=== PATIENT | male | born 1985 | race Hispanic/Latino ===

== ENCOUNTER 2018-10-29 13:02 | Emergency (ER) | payer SELFPAY ==
[~2018-10-29] VITALS: Ht 170.2 cm; Wt 77.1 kg
--- NOTE | 2018-10-29 13:50 | Diagnostic Imaging Report ---
EXAMINATION: FINGER RT - HOPD INDICATION: Trauma COMPARISON: None FINDINGS: No acute fracture or dislocation. Alignment is anatomic. Soft tissues appear unremarkable. IMPRESSION: No acute osseous injury. Signed by: Benedict Rubio MD on 10/29/2018 1:47 PM
[2018-10-29] MEDS ORDERED: TETANUS/DIPHTHERIA TOX ADULT 0.5 ML SYR IM ONE (14:15)
[2018-10-29] MEDS ORDERED: TETANUS/DIPHTHERIA TOX ADULT 0.5 ML SYR ONE (14:17)
[2018-10-29 14:19] VITALS: BP 137/72
== END 2018-10-29 14:23 | disposition home or self-care (01) ==
LOC: FSED 13:02
DX: L03.011 Cellulitis of right finger (principal); Z23 Encounter for immunization
CPT/HCPCS: 90471; 90714; 99283

== ENCOUNTER 2018-11-02 03:20 | Emergency (ER) | payer SELFPAY ==
[~2018-11-02] VITALS: Ht 170.2 cm; Wt 77.1 kg
--- OUTSIDE RECORDS SUMMARY | 2018-11-02 03:21 | XMS REPORT ---
[facility] Address Unknown Phone Unavailable Care Team Providers Care Arts Manager Name Role Phone [place] VENTURA Unavailable Unavailable Problems This patient has no known problems. Allergies, Adverse Reactions, Alerts This patient has no known allergies or adverse reactions. Medications This patient has no known medications. Results Test Description Test Time Test Comments Text Results Atomic Results Result Comments FINGER RT - HOPD 2018-10-29 13:44:00 [place] [address] Patient Name: JOSE M ATWOOD MR #: [id number] : 1985 Age/Sex: 33/M Req #: [id number] Adm Physician: Ordered by: GAVI VENTURA MD Report #: [id number] Location: [facility] Room/Bed: Procedure: [id number] HOPD/FINGER RT - HOPD Exam Date: 10/29/18 Exam Time: 1335 REPORT STATUS: Signed EXAMINATION: FINGER RT - HOPD INDICATION: Trauma COMPARISON: None FINDINGS: No acute fracture or dislocation. Alignment is anatomic. Soft tissues appear unremarkable. IMPRESSION: No acute osseous injury. Signed by: Pam Daniel MD on 10/29/2018 1:47 PM Dictated By: PAM DANIEL MD [id number] Transcribed By: BETTY on 10/29/18 1347 COPY TO: GAVI RODRIGUEZ MD
[2018-11-02] MEDS ORDERED: KETOROLAC TROMETHAMINE 60 MG/2 ML VIAL IM ONE (03:45)
[2018-11-02] MEDS ORDERED: CEFTRIAXONE SOD 1 GM VIAL IM ONE (03:45)
[2018-11-02] MEDS ORDERED: LIDOCAINE HCL 1% LOCAL INJ 20 ML VIAL ONE (03:53)
[2018-11-02] MEDS ORDERED: KETOROLAC TROMETHAMINE 60 MG/2 ML VIAL ONE (03:53)
[2018-11-02] MEDS ORDERED: CEFTRIAXONE SOD 1 GM VIAL ONE (03:53)
== END 2018-11-02 03:50 | disposition home or self-care (01) ==
LOC: FSED 03:20
DX: L03.011 Cellulitis of right finger (principal)
CPT/HCPCS: 99282; J0696; J1885; J2001